=== PATIENT | male | born 1990 | race Caucasian/White ===

== ENCOUNTER 2016-12-27 14:54 | Emergency (ER) | payer OTHER ==
--- NOTE | ~2016-12-27 | CR63 ---
[facility] A Service of [facility] & [facility] RADIOLOGY TEXT RESULTS PATIENT: URSULA MCCORD LOCATION: CFTX : 88 UNIT #: [id number] AGE: [address]: Edmundo Segovia SEX: M ORDER DR: [id number] [facility] [address] [place], [place] [address] [id number] MR#: [id number] Acc #: [id number] NAME: URSULA MCCORD : 1990 SEX: M STUDY DATE/TIME: 12/27/2016 16:30 UNIT: [facility] ROOM: STUDY DESCRIPTION: CR Chest 2 View Attending Physician: Edmundo Segovia Ordering Physician: Ed Doctor [id number] [facility] Primary Care Physician: Primary Care Physician No MEDICAL IMAGING REPORT This report is preliminary unless electronic signature is present EXAM PA and lateral chest radiograph. HISTORY Chest pain beginning yesterday. FINDINGS PA and lateral views are obtained. The cardiovascular configuration of the chest is normal and the lungs are clear. CONCLUSION Normal chest. Dictated by... Jaxon Barnes M.D. THIS IS AN ELECTRONICALLY VERIFIED REPORT Jaxon Barnes M.D. at 12/29/2016 12:00 PM RONDA/malissa TD: 12/27/2016 20:26 JOB #: [id number] MEDICAL IMAGING REPORT Page 1 of 1 COPY
== END 2016-12-27 17:10 | disposition home or self-care (01) ==
LOC: CFTX 14:54
DX: S29.011A Strain of muscle and tendon of front wall of thorax, initial encounter (principal); E78.5 Hyperlipidemia, unspecified; I10 Essential (primary) hypertension; X50.9XXA Other and unspecified overexertion or strenuous movements or postures, initial encounter
CPT/HCPCS: 71020; 99283